=== PATIENT | female | born 1955 | race Caucasian/White ===

== ENCOUNTER 2023-05-07 05:03 | Observation (INO) ==
--- NOTE | 2023-04-02 09:22 | PAT Medication Instructions ---
Medication Instructions Date of Service April 02, 2023 Home Medications Medication Instructions Recorded ondansetron HCl 4 mg tablet 4 mg PO DAILY PRN nausea and 08/17/22 vomiting 4 days #30 tabs tramadol 50 mg tablet 50 mg PO Q8H PRN pain #30 tabs 01/28/23 verapamil 120 mg tablet,extended 120 mg PO QPM #30 tabs 02/12/23 release fluoxetine 20 mg capsule 20 mg PO QAM meloxicam 15 mg tablet 15 mg PO QAM ondansetron HCl 4 mg tablet 4 mg PO DAILY PRN tramadol 50 mg tablet 50 mg PO Q8H PRN fluoxetine 10 mg tablet 10 mg PO QAM verapamil 120 mg tablet,extended release 120 mg PO QPM Medical Marijuana 1 dose inhalation UD PRN cholecalciferol (vitamin D3) 1,250 mcg (50,000 unit) tablet 50,000 unit PO Q7D lamotrigine 25 mg tablet (Lamictal) 50 mg PO HS rizatriptan 10 mg tablet (Maxalt) 10 mg PO UD PRN sumatriptan succinate 100 mg tablet (Imitrex) 100 mg PO UD PRN ubrogepant 100 mg tablet (Ubrelvy) 100 mg PO UD PRN Continue as directed ondansetron HCl 4 mg tablet 4 mg PO DAILY PRN(if needed) rizatriptan 10 mg tablet (Maxalt) 10 mg PO UD PRN(if needed) sumatriptan succinate 100 mg tablet (Imitrex) 100 mg PO UD PRN(if needed) ubrogepant 100 mg tablet (Ubrelvy) 100 mg PO UD PRN(if needed) ASK your surgeon for instructions meloxicam 15 mg tablet 15 mg PO QAM DO NOT take the morning of surgery Medical Marijuana 1 dose inhalation UD PRN cholecalciferol (vitamin D3) 1,250 mcg (50,000 unit) tablet 50,000 unit PO Q7D Take morning of surgery With a small sip of water, OTHERWISE NOTHING TO EAT OR DRINK AFTER MIDNIGHT: fluoxetine 20 mg capsule 20 mg PO QAM tramadol 50 mg tablet 50 mg PO Q8H PRN(if needed) fluoxetine 10 mg tablet 10 mg PO QAM Take evening before surgery tramadol 50 mg tablet 50 mg PO Q8H PRN(if needed) verapamil 120 mg tablet,extended release 120 mg PO QPM lamotrigine 25 mg tablet (Lamictal) 50 mg PO HS Other Notes If you have any questions please call us at [phone] or [phone] or [phone] or [phone]
--- NOTE | 2023-04-06 14:07 | Anesthesiology Consultation ---
Date of Service April 06, 2023 Assessment & Plan (1) Encounter for pre-operative examination: - Patient requests CXR be faxed to her PCP Dr. Dara Carnes with [facility]. - Outpatient joint assessment: Patient is currently scheduled for inpatient pathway. If re-evaluated and patient/surgeon requests outpatient pathway, patient is acceptable candidate for outpatient joint program from anesthesia standpoint pending surgeon's office assessment of pt motivation/support/completion of same day joint program preop requirements. Chart Review Chart Review: Acceptable Risk for Surgery and Patient seen in Pre Admission Testing Teaching & Discussion Pre-Anesthesia Teaching/Discussion Notes: Instructed NPO after midnight before surgery, except medications with 15 cc of water. Medication instructions provided according to the PAT guidelines. History Surgery Operation Date: 05/07/23 07:00 Proposed Procedures p Right Anterior Total Hip Arthroplasty - Bebeto Castorena DO Height/Weight Height: 5 ft 8 in Weight: 99.2 kg Allergies Allergy/AdvReac Type Severity Reaction Status Date / Time Sulfa (Sulfonamide AdvReac Intermediate GI upset Verified 04/06/23 14:13 Antibiotics) Medications Home Medications Medication Instructions Recorded Confirmed Last Taken fluoxetine 20 mg capsule 20 mg PO QAM 08/25/19 04/02/23 09/18/21 08:00 meloxicam 15 mg tablet 15 mg PO QAM 08/08/21 04/02/23 09/11/21 ondansetron HCl 4 mg tablet 4 mg PO DAILY PRN nausea and 08/17/22 04/02/23 Unknown vomiting 4 days #30 tabs tramadol 50 mg tablet 50 mg PO Q8H PRN pain #30 tabs 01/28/23 04/02/23 Unknown fluoxetine 10 mg tablet 10 mg PO QAM 02/12/23 04/02/23 Unknown verapamil 120 mg tablet,extended 120 mg PO QPM #30 tabs 02/12/23 04/02/23 Unknown release Medical Marijuana 1 dose inhalation UD PRN 04/02/23 04/02/23 Unknown Pain/anxiety cholecalciferol (vitamin D3) 1,250 50,000 unit PO Q7D 04/02/23 04/02/23 Unknown mcg (50,000 unit) tablet lamotrigine 25 mg tablet (Lamictal) 50 mg PO HS 04/02/23 04/02/23 Unknown rizatriptan 10 mg tablet (Maxalt) 10 mg PO UD PRN migraines 04/02/23 04/02/23 Unknown sumatriptan succinate 100 mg 100 mg PO UD PRN migraines 04/02/23 04/02/23 Unknown tablet (Imitrex) ubrogepant 100 mg tablet (Ubrelvy) 100 mg PO UD PRN migraine 04/02/23 04/02/23 Unknown Past Medical History Medical History (Updated 04/06/23 @ 14:15 by Annia Merchant PA-C) Depression Hx of migraine headaches Hypertension controlled, stable per pt Medical cannabis use Ocular migraine chronic Patient denies h/o stroke, seizures, heart attack, heart failure, DM, HTN, blood clots/DVTs or blood transfusions. Exercise / Class Metabolic Activity II 4-5 Yardwork/Stairs/Walk up hill (denies chest discomfort or shortness of breath with 1 FOS) Past Family History Family History (Updated 04/06/23 @ 14:13 by Annia Merchant PA-C) Mother Diabetes Father Diabetes Denies family history of Ovarian cancer Breast cancer Colorectal cancer Uterine cancer Past Surgical History Surgical History History of esophagogastroduodenoscopy (EGD) History of total left hip replacement History of total replacement of left shoulder joint Hx of colonoscopy Hx of tonsillectomy Hx of tubal ligation Past Anesthesia History No Hx of Anesthesia Complications and No Family Hx of Anesthesia Complications History of PONV No Hx of PONV and No Hx of Motion Sickness Social History Smoking Status: Former smoker Do You Dip or Chew Tobacco: No Smoking End Date: 1999 Hx Alcohol Use: Yes Alcohol type: hard liquor alcohol intake frequency: a few times a month Hx Substance Use: No (medical card) substance use type: marijuana Last Used Substance Other:: occasional use>most recent 04/01/23 Review of Systems Patient denies chest pain, shortness of breath, dyspnea on exertion, snoring, witnessed apneas, reflux, fever, chills, cough, wheezing, or palpitations. Physical Exam Vital Signs Vitals BP 147/84 P 71 TEMP 98.3 SP02 95% on RA RESP 18 Physical Patient resting comfortably in chair in no acute distress, alert and oriented, responding appropriately throughout visit Full cervical extension range of motion without pain TMD 3.5 finger breadths Mallampati Score 3 Dentition: several caps/crowns and implant right lower side, denies chipped or loose teeth, or bridges Lungs: normal respiratory effort. Good air movement, clear throughout to auscultation, no adventitious breath sounds Cardiac: regular rate and rhythm, no murmurs noted Carotid arteries: negative bruit bilat Lab Results Anesthesia Preop Results Results Anesthesia Widget: WBC 6.54 K/ul (4.8-10.8) 04/06/23 Hgb 13.7 g/dl (12.0-16.0) 04/06/23 Hct 41.6 % (37.0-47.0) 04/06/23 Plt 251 K/uL (130-400) 04/06/23 Na 139 mmol/L (136-145) 04/06/23 K 4.2 mmol/L (3.5-5.1) 04/06/23 Cl 106 mmol/L (98-107) 04/06/23 CO2 28 mmol/L (21-32) 04/06/23 BUN 17 mg/dl (6-23) 04/06/23 Creat 0.94 mg/dl (0.6-1.2) 04/06/23 Glucose Level 81 mg/dl (70-99(Fasting)) 04/06/23 PT 10.6 Seconds (9.0-12.0) 04/06/23 PTT 28 Seconds (21-31) 04/06/23 INR 1.0 (0.9-1.1) 04/06/23 TSH 2.474 uIu/ml (0.300-4.500) 04/06/23 Blood Type O Positive 04/06/23 Antibody Screen NEGATIVE 04/06/23 Testing Electrocardiogram Date: 04/06/23 NSR, rate 64 bpm Moderate voltage criteria for LVH, may be normal variant Nonspecific ST abnormality Chest X-Ray Date: 04/06/23 No active disease in the chest.
--- NOTE | 2023-05-06 12:29 | History & Physical Report ---
Date of Service May 06, 2023 Assessment & Plan (1) Osteoarthritis of right hip: We will proceed with a right total hip arthroplasty. Postoperatively she will be started on aspirin for DVT prophylaxis and kept overnight in the hospital for postop medical management. She plans to use energy physical therapy upon discharge. History of Present Illness Chief Complaint: Osteoarthritis of the right hip. Primary Care Provider: Dara Carnes MD Gisell is a pleasant 67-year-old female who has been dealing with chronic increasing right hip pain. She has a history of a left hip replacement done by Dr. Britt in the past and has done well with that. Unfortunately, she is dealing with a lot of right hip pain. She has trouble walking long distances. She has trouble getting in and out of a car. She has a lot of pain in her right hip. After failing extensive conservative treatment, she has elected proceed with a right total hip arthroplasty. Allergies Allergy/AdvReac Type Severity Reaction Status Date / Time Sulfa (Sulfonamide AdvReac Intermediate GI upset Verified 04/06/23 14:13 Antibiotics) Home Medications Medication Instructions Recorded Confirmed Type fluoxetine 20 mg capsule 20 mg PO QAM 08/25/19 04/02/23 History meloxicam 15 mg tablet 15 mg PO QAM 08/08/21 04/02/23 History ondansetron HCl 4 mg tablet 4 mg PO DAILY PRN nausea and 08/17/22 04/02/23 Rx vomiting 4 days #30 tabs fluoxetine 10 mg tablet 10 mg PO QAM 02/12/23 04/02/23 History verapamil 120 mg tablet,extended 120 mg PO QPM #30 tabs 02/12/23 04/02/23 Rx release Medical Marijuana 1 dose inhalation UD PRN 04/02/23 04/02/23 History Pain/anxiety cholecalciferol (vitamin D3) 1,250 50,000 unit PO Q7D 04/02/23 04/02/23 History mcg (50,000 unit) tablet rizatriptan 10 mg tablet (Maxalt) 10 mg PO UD PRN migraines 04/02/23 04/02/23 History sumatriptan succinate 100 mg 100 mg PO UD PRN migraines 04/02/23 04/02/23 History tablet (Imitrex) ubrogepant 100 mg tablet (Ubrelvy) 100 mg PO UD PRN migraine 04/02/23 04/02/23 History lamotrigine 25 mg tablet (Lamictal) 50 mg (2 x 25 mg) PO HS 30 days 04/08/23 Rx #60 tabs tramadol 50 mg tablet 50 mg PO Q8H PRN pain #30 tabs 05/03/23 Rx Past Med/Surg History Medical History Ocular migraine chronic Medical cannabis use Depression Hypertension controlled, stable per pt Hx of migraine headaches Surgical History History of esophagogastroduodenoscopy (EGD) History of total replacement of left shoulder joint History of total left hip replacement Hx of tubal ligation Hx of colonoscopy Hx of tonsillectomy Family History Mother Diabetes Father Diabetes Denies family history of Ovarian cancer Breast cancer Colorectal cancer Uterine cancer Social History Smoking Status: Former smoker Tobacco Type: Cigarettes Second Hand Exposure: Yes (hx); Do You Dip or Chew Tobacco: No; Hx Alcohol Use: Yes Alcohol type: hard liquor Hx Substance Use: No (medical card) Preferred Language: Cypriot Communication Ability: Effective Healthcare Applications Analyst Required: No Beliefs That Will Affect Care: None Current Living Situation: Spouse Feels Safe at Home: Yes Assistive Devices: Glasses Review of Systems All systems reviewed & are unremarkable except as noted in HPI & below. Physical Exam On physical examination of right hip, she has decreased range of motion. She has pain with forced internal/external rotation. All of her pain is located in the groin.. Constitutional WD/WN, vitals as above Eyes PERRL, conjunctivae normal, anicteric sclerae ENMT external ear and nose normal, oropharynx normal Neck trachea midline, no thyromegaly Respiratory normal respiratory effort Cardiovascular RRR, no murmur, no edema Gastrointestinal (Abdomen) normal bowel sounds, soft, nontender, no hepatosplenomegaly Psychiatric A+Ox3, euthymic affect Results & Data Results & Data Laboratory Results . Diagnostic Findings X-rays of the right hip show advanced osteoarthritis with joint space narrowing, osteophyte formation, and nlid-fa-pfye articulation. PG Care Time/CCT Total # of Minutes Spent Total Time Spent with Patient: Total time spent is greater than 50% in coordination of care (as documented) at patient's floor/unit and/or counseling patient: Coding Level of Care Code None Diagnoses Osteoarthritis of right hip M16.11
[2023-05-07] MEDS: LR 60ML/HR IV SCH (05:55)
[2023-05-07] MEDS: LR 500ML BOLUS, THEN 15ML/HR IV SCH (05:55)
[2023-05-07] MEDS: GABAPENTIN 300 MG CAP PO SCH (05:57)
[2023-05-07] MEDS: FAMOTIDINE 20 MG TAB PO SCH (05:57)
[2023-05-07] MEDS: ACETAMINOPHEN 500 MG TAB PO SCH ×2 (05:57→13:03)
[2023-05-07] MEDS ORDERED: BUPIVACAINE 0.5 % 5 MG/1 ML PF 10ML VIAL ONE (06:24)
[2023-05-07] MEDS ORDERED: ePHEDrine sulfate 50 MG/ML AMP IV PRN (06:37)
[2023-05-07] MEDS ORDERED: ONDANSETRON INJ 2 MG/ML 2 ML VIAL IV PRN ×2 (06:37→10:05)
[2023-05-07] MEDS ORDERED: ATROPINE SULFATE 0.1 MG/ML 10ML SYR IV PRN (06:37)
[2023-05-07] MEDS ORDERED: MIDAZOLAM HCL 1 MG/ML 2ML VIAL ONE (06:40)
[2023-05-07] MEDS ORDERED: fentaNYL citrate PF 100 MCG/2 ML VIAL ONE (06:40)
[2023-05-07] MEDS ORDERED: PROPOFOL IV EMULSION 10 MG/ML 20 ML VIAL IV ONE (06:41)
--- NOTE | 2023-05-07 06:42 | History & Physical Bridge Note ---
Date of Service May 07, 2023 History & Physical Bridge Note I have examined the patient, reviewed the History & Physical and in the interval since the performance of the History & Physical I have noted the following changes of clinical significance: no changes noted
[2023-05-07] MEDS: TRANEXAMIC ACID 1,000 MG **IV Pre-op IV SCH (06:43)
[2023-05-07] MEDS: ceFAZolin 2000MG 2,000 MG/15 ML SYR IV SCH ×2 (06:58→14:36)
[2023-05-07] MEDS: ROPIV 0.5% 246mg, Ketorolac 30mg, EPINEPHrine 0.5mg in NSS INFIL SCH (07:24)
[2023-05-07] MEDS: ORTHO JOINT ANESTHETIC ONE (07:25)
[2023-05-07] MEDS: TRANEXAMIC ACID 1,000 MG **IV Intra-op IV SCH (07:53)
--- NOTE | 2023-05-07 07:54 | Operative Report ---
PG Post Operative Report Pre & Post Diagnosis Operation Date: 05/07/23 07:00 Pre-Op Diagnosis: Right Hip Degenerative Joint Disease Post-Op Diagnosis: Right Hip Degenerative Joint Disease I identified the patient and participated in the time-out.: Yes Procedure Operation Date: 05/07/23 07:00 Actual Procedures p Right Anterior Total Hip Arthroplasty(Right) - Bebeto Castorena DO Surgeon Bebeto Castorena DO Tv Technician Bebeto Chaudhary PA-C Estimated Blood Loss 200 Findings Consistent with Post-Op Diagnosis Specimens Right femoral head Description of Procedure Implants used I used a ZimmerBiomet total hip arthroplasty system with a size 5 standard offset Avenir Complete stem, a 50 mm G7 cup with a 25mm screw, an E1 polyet hylene liner, a 36 mm ceramic head with a 0 neck. Gisell arrived at the hospital for the above procedure. She was seen in the preoperative holding area and the operative extremity was identified and signed. She was given a spinal anesthetic, a preoperative antibiotic, and TXA. She was then taken back to the operating room and laid on the table in the supine position. She was given basic sedation. The operative leg was secured to a Puristst leg positioner. The hip was then prepped and draped in sterile fashion. A timeout was done and the patient and the operative extremity was properly identified. An anterior approach was used. Dissection was taken down through the fascia and the tensor muscle belly was retracted laterally and the rectus was retracted medially. The circumflex vessels were identified and ligated. The capsule was then incised and tagged for later repair. The femoral neck was then cut and the femoral head was removed. The acetabulum was exposed. Time was spent doing a complete circumferential labral release. Sequential reaming of the acetabulum up to a size 49 reamer was done. Final reamings were done under fluoroscopy to ensure appropriate version. A Biomet 50 mm G7 cup was then impacted into place. A single 25 mm screw was placed. The E1 polyethylene liner was then snapped into place. Surrounding soft tissues were then injected with 100 cc of an orthopedic pain control cocktail. The proximal femur was then exposed. Sequential broaching up to a size 5 broach was done. Off that broach a size 36 head with a 0 neck was trialed. The hip was reduced and fluoroscopic images showed anatomic alignment of the implants in acceptable length. The broach was removed. The final size 5 standard offset Avenir Complete stem was then impacted into place. A ceramic 36 mm head with a 0 neck was then impacted onto the stem and the hip was reduced. Final fluoroscopic images showed anatomic alignment of the hip. The capsule was then closed with #1 Vicryl suture. A dilute betadyne lavage was then done for 3 minutes. The joint was then irrigated with normal saline solution. The fascia was closed with #1 PDS suture. Skin was closed with 2-0 Vicryl, koki, and a Silverlon dressing. She was then transferred to a hospital bed and taken to the post anesthesia care unit in stable condition. She tolerated the procedure well. Bebeto Chaudhary PA-C, was present for the entire procedure. He was critical for patient positioning, prepping, draping, retraction exposure, wound closure and application of sterile dressing. I attest to the content of the Intraoperative Record and any orders documented therein. Any exceptions are noted below.
--- NOTE | 2023-05-07 08:47 | XRay Report ---
SINGLE VIEW PELVIS; SINGLE VIEW RIGHT HIP CLINICAL HISTORY: Postoperative examination. FINDINGS: An AP portable view of the hips and pelvis with a crosstable lateral portable view of the r ight hip are compared to study dated 01/28/2023. A bipolar right hip arthroplasty is in near-anatomic alignment. A single cortical lag screw transfixes the acetabular cup. No acute fracture is identifie d. There are expected postoperative changes overlying the right hip including skin clips, subcutaneou s gas, and soft tissue swelling. A left hip arthroplasty is unchanged in position. Mild sclerotic yahir nge is noted in the sacroiliac joints. IMPRESSION: Expected postoperative findings status post right hip arthroplasty. No acute fracture is seen. ACT 112: Negative or not required by law. Electronically signed by: Jarred Darby M.D. 05/07/2023 8:46 AM
[2023-05-07] MEDS: fentaNYL citrate PF 100 MCG/2 ML VIAL IV PRN (09:03)
[2023-05-07] MEDS ORDERED: ePHEDrine sulfate 50 MG/5 ML SYR ONE (09:08)
--- NOTE | 2023-05-07 09:34 | Fluoroscopy Report ---
INTRAOPERATIVE RADIOGRAPH CLINICAL HISTORY: Right hip arthroplasty. Fluoro time: 13 seconds Ka,r: 1.93 mGy FINDINGS: A single spot fluoroscopic view of the right hip from an arthroplasty procedure is presente d. A bipolar right hip arthroplasty is in near anatomic alignment. A single cortical lag screw transf ixes the acetabular cup. There is no evidence of acute fracture on this fluoroscopic image. IMPRESSION: Intraoperative image from right hip arthroplasty procedure as above. Electronically signed by: Jarred Darby M.D. 05/07/2023 9:33 AM
[2023-05-07] MEDS ORDERED: NALOXONE HCL 0.4 MG/1 ML VIAL/CARP IV PRN (10:05)
[2023-05-07] MEDS ORDERED: HYDROmorphone INJ 0.5 MG/0.5 ML SYR IV PRN (10:05)
[2023-05-07] MEDS ORDERED: METOCLOPRAMIDE HCL INJ 5 MG/ML 2 ML VIAL IV PRN (10:05)
[2023-05-07] MEDS ORDERED: NON-FORMULARY MEDICATION (Ubrogepant [Ubrelvy] 100 mg tablet) PO PRN (10:05)
[2023-05-07] MEDS ORDERED: bisacodyL 10 MG SUPP PR PRN (10:05)
[2023-05-07] MEDS ORDERED: MAGNESIUM HYDROXIDE SUSP 30 ML UDC PO PRN (10:05)
--- NOTE | 2023-05-07 10:13 | Anesthesiology Progress Note ---
Date of Service May 07, 2023 Anesthesia Post Procedure Vital Signs Vital Signs: Temp Pulse Pulse Resp BP Pulse Ox O2 Del Method 05/07/23 10:08 97.5 F L 57 L 16 125/79 96 Room Air 05/07/23 09:45 66 17 118/71 94 Room Air 05/07/23 09:30 56 L 13 119/67 96 Room Air 05/07/23 09:20 97.5 F L 59 L 13 117/69 96 Room Air 05/07/23 09:10 56 L 19 121/67 98 Room Air 05/07/23 09:00 60 14 117/76 95 Room Air 05/07/23 08:50 58 L 15 120/74 96 Room Air 05/07/23 08:40 55 L 16 111/68 99 Room Air 05/07/23 08:30 64 20 109/64 99 Oxymask 05/07/23 08:23 96.8 F L 59 L 12 102/59 L 99 Oxymask 05/07/23 05:43 98.4 F 77 18 151/94 H 95 Room Air O2 Flow Rate 05/07/23 10:08 05/07/23 09:45 05/07/23 09:30 05/07/23 09:20 05/07/23 09:10 05/07/23 09:00 05/07/23 08:50 05/07/23 08:40 05/07/23 08:30 2 05/07/23 08:23 4 05/07/23 05:43 Pain Intensity Right Head: Pain Intensity: 1 Transfer of Care Handoff Completed per policy Notes Mental Status: alert / awake / arousable and participated in evaluation Patient Amnestic to Procedure: Yes Nausea / Vomiting: adequately controlled Pain: adequately controlled Airway Patency, RR, SpO2: stable & adequate BP & HR: stable & adequate Hydration State: stable & adequate Neuraxial Anesthesia: was administered and sensory block is resolving Anesthetic Complications: no major complications apparent and Pt Satisfied with anesthetic care
[2023-05-07] MEDS: SODIUM CHLORIDE 0.9% 1,000 ML IV SCH (10:38)
[2023-05-07] MEDS: MULTIVITAMIN TAB PO SCH (11:15)
[2023-05-07] MEDS: ASPIRIN 81 MG ECTAB PO SCH (11:15)
[2023-05-07] MEDS: DOCUSATE SODIUM 100 MG CAP PO SCH (11:15)
[2023-05-07] MEDS: RIZATRIPTAN BENZOATE 10 MG TAB PO PRN (11:18)
[2023-05-07] MEDS: KETOROLAC TROMETHAMINE 15 MG/ML VIAL IV SCH (12:08)
[2023-05-07] MEDS: FLUoxetine HCL 20 MG CAP PO SCH (12:15)
[2023-05-07] MEDS: FLUoxetine HCL 10 MG CAP PO SCH (12:15)
[2023-05-07] MEDS: oxyCODONE HCL IR 5 MG TAB (IMMEDIATE RELEASE) PO PRN (14:39)
[2023-05-07] MEDS: PNEUMOCOCCAL VACCINE (PCV20) 20-VAL CONJ-DIP CRM/PF 0.5 ML SYR IM ONE (16:05)
[2023-05-07] MEDS: VERAPAMIL HCL 120 MG TABCR PO SCH (19:57)
[2023-05-07] MEDS: SENNA 8.6 MG TAB PO SCH (19:58)
[2023-05-07] MEDS: lamoTRIgine 25 MG TAB PO SCH (19:58)
--- NOTE | 2023-05-08 07:33 | Orthopedic Progress Note ---
Date of Service May 08, 2023 Assessment & Plan (1) Status post right hip replacement: Overall she is doing very well. She is not having much pain in the right hip. She will be seen by physical therapy today for ambulation and range of motion exercises. She is on aspirin for DVT prophylaxis. She can be discharged home later today. She will follow-up orthopedics in 2 weeks. Marcel aJmeson was seen and examined at bedside this morning. Overall she is doing very well. She is not having much pain in the right hip. She has been up and ambulating. She has no complaints.. Review of Systems All systems reviewed & are unremarkable except as noted in HPI & below. Physical Exam On physical examination of the right hip, the dressing is clean and dry. Her leg lengths are equal. She has active dorsiflexion plantarflexion of her right ankle.. Results & Data Results & Data Laboratory Results . Diagnostic Findings Postoperative x-rays of the right hip show the prosthesis to be in anatomic ali gnment without any evidence of fracture, dislocation, or loosening.. PG Care Time/CCT Total # of Minutes Spent Total Time Spent with Patient: Total time spent is greater than 50% in coordination of care (as documented) at patient's floor/unit and/or counseling patient: Coding Level of Care Code 40510 Post Operative Follow-Up Diagnoses Status post right hip replacement Z96.641
--- NOTE | 2023-05-08 07:34 | Discharge Summary ---
Date of Service May 08, 2023 Admission HPI (Per Admitting) Gisell is a pleasant 67-year-old female who has been dealing with chronic increasing right hip pain. She has a history of a left hip replacement done by Dr. Britt in the past and has done well with that. Unfortunately, she is dealing with a lot of right hip pain. She has trouble walking long distances. She has trouble getting in and out of a car. She has a lot of pain in her right hip. After failing extensive conservative treatment, she has elected proceed with a right total hip arthroplasty. Admission Exam (Per Admitting) On physical examination of right hip, she has decreased range of motion. She has pain with forced internal/external rotation. All of her pain is located in the groin.. Principal Diagnosis Same as "Discharge Diagnosis" noted below under Discharge Instructions. Discharge Exam On physical examination of the right hip, the dressing is clean and dry. Her leg lengths are equal. She has active dorsiflexion plantarflexion of her right ankle.. Discharge Data Procedures Performed Operation Date: 05/07/23 07:00 Actual Procedures p Right Anterior Total Hip Arthroplasty(Right) - Bebeto Castorena DO Ordered Studies 05/07/23 07:00 FL hip RT 1V Routine Hospital Course (1) Status post right hip replacement: On May 07 [address] [facility] and underwent a right hip replacement without complication. She had a spinal anesthetic. Postoperatively she was started on aspirin for DVT prophylaxis and transferred to the general orthopedic floors. Her hospital course was uneventful. On postop day #1, her vital signs were stable and her pain was well-controlled. She was able to participate well with physical therapy doing ambulation and range of motion exercises. She was then discharged home. She will follow-up with orthopedics in 2 weeks. PG Care Time/CCT Total # of Minutes Spent Total Time Spent with Patient: Total time spent is greater than 50% in coordination of care (as documented) at patient's floor/unit and/or counseling patient: Discharge Plan Discharge Items Patient Disposition: Home - Self-Care Reason For Visit: Right Hip Degenerative Joint Disease Discharge Diagnosis: Right hip replacement Activity: As commented below Non-emergency contact: Surgeon Call non-emergency contact if: your wound has increased redness and your wound has increased drainage Follow-up/Referrals: Dara Carnes MD [Primary Care Provider] - Diet: Regular Addtl Attending Provider Instructions: Activity and Therapy Recommendations: * If you are using [facility] then therapy will be provided at your home until they feel you have accomplished all of your goals. * If you are using [facility] then Physical Therapy will be provided until they feel you are ready to start Outpatient Physical Therapy. * If you are not using home therapy then Outpatient Physical Therapy should start about 3-5 days from your day of surgery. Therapy will last about 6-10 weeks * You were shown a series of exercises in the hospital. Do these exercises three times each day including the exercises you were shown in physical therapy. * Get up and walk several times each day.~ For the first four weeks, try not to stand or walk for more than one hour at a time. If you do stand or walk for more than one hour, you will not hurt anything, but your leg will likely swell.~~ * As you feel comfortable, you may change from the walker or crutches to a cane and~then to independent walking. Medications: * Narcotic You will likely be sent home from the hospital with a prescription for the narcotic pain medication that worked best throughout your stay. * Cefadroxil -take the antibiotic twice a day for 10 days to help prevent infection. * Aspirin Most patients will be required to take Aspirin 81mg twice a day for 6 weeks after surgery. This is obtained [id number] and a prescription is not necessary. * Other medications may be prescribed for specific circumstances. If you have any questions, please call the office at . * Resume previous home medications unless otherwise instructed TEDs/Elastic Stockings: The white elastic stockings help limit swelling and prevent blood clots from forming in your legs. The more you wear them, the more they work. Wear them for six weeks. Dressing Care: Leave the Silverlon dressing in place for 7 days. After 7 days you may remove the dressing. If the incision is not draining then you may leave the koki open to air. If there is a little bit of drainage or if the koki are getting stuck on your clothing then cover the incision with a dry dressing. The koki will be removed at your 2 week follow-up appointment. Showering: You may shower with the Silverlon dressing in place. Do not let the shower spray hit the dressing directly. Pat the Silverlon dressing dry. If the dressing becomes wet underneath, then simply remove the dressing. Keep the incision dry until you are 7 days out from the day of surgery. After 7 days you may remove the Silverlon dressing and shower with the koki exposed. Let soapy water run over the koki and pat them dry. Do not scrub or soak the incision. Things To Watch For: * Drainage from the incision site that occurs more than one week after your surgery. * Increased redness at the incision site. * Fever above 102 degrees Fahrenheit. * Unusual chest pain or shortness of breath. * Call [facility] at with any of the above problems Follow-Up Visit: Follow-up with Dr. Castorena's PA (Bebeto Chaudhary) 2-3 weeks after your day of surgery. He will remove your koki and answer any questions. If you have any additional questions or concerns, Dr Castorena is usually in the office at the same time and will be available An appointment was probably scheduled when you signed-up for surgery in the office. If you have any questions call Office Instructions: More detailed instructions as well as Frequently Asked Questions were provided in a folder by our office when you signed-up for surgery. Please review these instructions when you get home. If you have any further questions or concerns, please feel free to call the office at [phone] Pending Studies at Discharge: No Stand-Alone Forms: My [facility], Smoking Cessation Medications and DC Order Prescriptions: New oxycodone 5 mg Tablet 5 mg PO Q4H PRN (Reason: pain) Qty: 30 0RF cefadroxil 500 mg capsule 500 mg PO BID 10 Days Qty: 20 0RF aspirin 81 mg Tablet,Delayed Release (Dr/Ec) 81 mg PO BID 42 Days Qty: 0 0RF Continued lamotrigine [Lamictal] 25 mg tablet 50 mg PO HS 30 Days Qty: 60 5RF tramadol 50 mg tablet 50 mg PO Q8H PRN (Reason: pain) Qty: 30 0RF fluoxetine 10 mg tablet 10 mg PO QAM fluoxetine [Prozac] 20 mg capsule 20 mg PO QAM meloxicam 15 mg Tablet 15 mg PO QAM rizatriptan [Maxalt] 10 mg Tablet 10 mg PO UD PRN (Reason: migraines) Rx Instructions: take 1 tab at onset of headache; if no relief may repeat 1 tab after at least 2 hrs; max = 3 tabs/24 hr sumatriptan succinate [Imitrex] 100 mg tablet 100 mg PO UD PRN (Reason: migraines) Rx Instructions: take 1 tab at onset of headache; if no relief, may repeat 1 tab after at least 2 hrs; max = 2 tabs/24 hrs PO cholecalciferol (vitamin D3) 1,250 mcg (50,000 unit) tablet 50,000 unit PO Q7D Patient Comments: takes on weekend Ubrelvy 100 mg tablet 100 mg PO UD PRN (Reason: migraine) Medical Marijuana 1 dose inhalation UD PRN (Reason: Pain/anxiety) verapamil [Calan SR] 120 mg tablet extended release 120 mg PO QPM Discharge Orders: Discharge Order (Routine); Ordered 05/08/23 Ordered By: Bebeto Castorena Admission Data Admit Date/Time: 05/07/23 08:20 Attending Provider: Bebeto Castorena Admit Provider: Bebeto Castorena Primary Care Provider: Dara Carnes
[2023-05-08] MEDS: SUMAtriptan succinate 100 MG TAB PO PRN (07:56)
== END 2023-05-08 10:27 | disposition home or self-care (01) ==
LOC: ASU 05:03 → 3E 05:03

== ENCOUNTER 2024-09-18 09:27 | Inpatient (IN) ==
--- NOTE | 2024-08-24 15:52 | PAT Medication Instructions ---
Medication Instructions Date of Service August 24, 2024 Home Medications Medication Instructions Recorded ubrogepant 100 mg tablet (Ubrelvy) 100 mg PO UD PRN migraine #10 tabs 03/09/24 verapamil 180 mg tablet,extended 180 mg PO QPM #90 tabs 03/09/24 release lamotrigine 25 mg tablet (Lamictal) 50 mg (2 x 25 mg) PO HS 90 days 05/19/24 #180 tabs rizatriptan 10 mg tablet (Maxalt) 10 mg PO UD PRN migraines #9 tabs 07/18/24 Medical Marijuana 1 dose inhalation UD PRN Pain/anxiety fluoxetine 10 mg capsule 10 mg PO QAM ubrogepant 100 mg tablet (Ubrelvy) 100 mg PO UD PRN migraine verapamil 180 mg tablet,extended release 180 mg PO QPM lamotrigine 25 mg tablet (Lamictal) 50 mg (2 x 25 mg) PO HS rizatriptan 10 mg tablet (Maxalt) 10 mg PO UD PRN migraines meloxicam 15 mg tablet 15 mg PO QAM ASK your surgeon for instructions meloxicam 15 mg tablet 15 mg PO QAM ASK your prescriber and surgeon ubrogepant 100 mg tablet (Ubrelvy) 100 mg PO UD PRN migraine DO NOT take the morning of surgery Medical Marijuana 1 dose inhalation UD PRN Pain/anxiety Take morning of surgery With a small sip of water, OTHERWISE NOTHING TO EAT OR DRINK AFTER MIDNIGHT: fluoxetine 10 mg capsule 10 mg PO QAM rizatriptan 10 mg tablet (Maxalt) 10 mg PO UD PRN migraines (if needed) Take evening before surgery Medical Marijuana 1 dose inhalation UD PRN Pain/anxiety (if needed) verapamil 180 mg tablet,extended release 180 mg PO QPM lamotrigine 25 mg tablet (Lamictal) 50 mg (2 x 25 mg) PO HS rizatriptan 10 mg tablet (Maxalt) 10 mg PO UD PRN migraines (if needed) Other Notes If you have any questions please call us at [phone] or [phone] or [phone] or [phone]
--- NOTE | 2024-08-29 10:39 | Anesthesiology Consultation ---
Date of Service August 29, 2024 Assessment & Plan (1) Encounter for pre-operative examination: - Outpatient joint assessment: Patient is currently scheduled for inpatient pathway. If re-evaluated and patient/surgeon requests outpatient pathway, patient is not a candidate for outpatient joint program unless confirmed by surgeon given revision. Chart Review Chart Review: Acceptable Risk for Surgery and Patient seen in Pre Admission Testing Teaching & Discussion Pre-Anesthesia Teaching/Discussion Notes: Instructed NPO after midnight before surgery, except medications with 15 cc of water. Medication instructions provided according to the PAT guidelines. History Surgery Operation Date: 09/18/24 09:00 Proposed Procedures p Revision Right Total Shoulder Arthroplasty - Bebeto aCstorena, Height/Weight Height: 5 ft 8 in Weight: 94.7 kg Allergies Allergy/AdvReac Type Severity Reaction Status Date / Time Sulfa (Sulfonamide AdvReac Intermediate GI upset Verified 08/30/24 07:41 Antibiotics) Medications Home Medications Medication Instructions Recorded Confirmed Last Taken Medical Marijuana 1 dose inhalation UD PRN 04/02/23 08/30/24 08/29/24 20:00 Pain/anxiety fluoxetine 10 mg capsule 10 mg PO QAM 03/09/24 08/30/24 08/29/24 08:00 ubrogepant 100 mg tablet (Ubrelvy) 100 mg PO UD PRN migraine #10 tabs 03/09/24 08/30/24 Unknown verapamil 180 mg tablet,extended 180 mg PO QPM #90 tabs 03/09/24 08/30/24 08/29/24 19:00 release lamotrigine 25 mg tablet (Lamictal) 50 mg (2 x 25 mg) PO HS 90 days 05/19/24 08/30/24 08/29/24 19:00 #180 tabs rizatriptan 10 mg tablet (Maxalt) 10 mg PO UD PRN migraines #9 tabs 07/18/24 08/30/24 08/23/24 06:00 meloxicam 15 mg tablet 15 mg PO QAM 08/15/24 08/30/24 08/29/24 08:00 Past Medical History Medical History Depression Glenohumeral arthritis Hx of migraine headaches Hypertension controlled, stable per pt Ocular migraine chronic Osteoarthritis Pain in shoulder region after shoulder replacement right - having surgery at [facility] 09/2024 Patient denies h/o stroke, seizures, heart attack, heart failure, DM, blood clots/DVTs or blood transfusions. Exercise / Class Metabolic Activity II 4-5 Yardwork/Stairs/Walk up hill (denies chest discomfort or shortness of breath with one flight of stairs) Past Family History Family History Mother Diabetes Father Diabetes Other No family history of adverse response to anesthesia Denies family history of Ovarian cancer Breast cancer Colorectal cancer Uterine cancer Past Surgical History Surgical History History of esophagogastroduodenoscopy (EGD) History of total left hip replacement History of total replacement of left shoulder joint History of total right hip arthroplasty Right anterior EHSAN (05/07/23): SAB at [facility] Hx of colonoscopy Hx of right cataract extraction (08/23/24) Hx of tonsillectomy Hx of tubal ligation S/p reverse total shoulder arthroplasty (2023) right Past Anesthesia History No Hx of Anesthesia Complications and No Family Hx of Anesthesia Complications History of PONV No Hx of PONV and No Hx of Motion Sickness Social History Smoking Status: Former smoker Do You Dip or Chew Tobacco: No Smoking End Date: quit 25 years ago Hx Alcohol Use: Yes Alcohol type: hard liquor alcohol intake frequency: a few times a month Alcohol Intake Frequency Comment: 2x per month Hx Substance Use: Yes substance use type: marijuana Last Used Substance: Unknown Last Used Substance Other:: med marijuana- 2x per week-advised Review of Systems Snoring, denies witnessed apneas. Patient denies chest pain, shortness of breath, dyspnea on exertion, reflux, fever, chills, cough, wheezing, or palpitations. Physical Exam Vital Signs Vitals BP 131/84 P 73 TEMP 98.5 SP02 95% on RA RESP 18 Physical Patient resting comfortably in chair in no acute distress, alert and oriented, responding appropriately throughout visit Full cervical extension range of motion without pain TMD 3.5 finger breadths Mallampati Score 3 Dentition: several caps/crowns, bridge left upper side and implant right lower side; denies chipped or loose teeth Lungs: normal respiratory effort. Good air movement, clear throughout to auscultation, no adventitious breath sounds Cardiac: regular rate and rhythm, no murmurs noted Carotid arteries: negative bruit bilat Lab Results Anesthesia Preop Results Results Anesthesia Widget: WBC 8.58 K/ul (4.8-10.8) 08/29/24 Hgb 13.7 g/dl (12.0-16.0) 08/29/24 Hct 39.9 % (37.0-47.0) 08/29/24 Plt 228 K/uL (130-400) 08/29/24 Na 138 mmol/L (136-145) 08/29/24 K 4.2 mmol/L (3.5-5.1) 08/29/24 Cl 105 mmol/L (98-107) 08/29/24 CO2 24 mmol/L (21-32) 08/29/24 BUN 28 mg/dl (6-23) H 08/29/24 Creat 0.99 mg/dl (0.6-1.2) 08/29/24 Glucose Level 93 mg/dl (70-99(Fasting)) 08/29/24 PT 10.4 Seconds (9.0-12.0) 08/29/24 PTT 27 Seconds (21-31) 08/29/24 INR 1.0 (0.9-1.1) 08/29/24 Blood Type O Positive 08/29/24 Antibody Screen NEGATIVE 08/29/24 Testing Electrocardiogram Date: 08/29/24 NSR, rate 69 bpm Minimal voltage criteria for LVH, may be normal variant Chest X-Ray Date: 08/29/24 No acute findings.
[~2024-09-18 09:27] MED LIST: BUPIVACAINE 0.5 % 5 MG/1 ML PF 10ML VIAL ONE; DEXAMETHASONE SOD INJ 4 MG/ML VIAL ONE; GLYCOPYRROLATE 0.2 MG/ML VIAL ONE; KETAMINE HCL 10MG/ML SYR ONE; LIDOCAINE 2% 2 ML VIAL/AMP(20MG/ML) INFIL ONE; MIDAZOLAM HCL 1 MG/ML 2ML VIAL ONE; ONDANSETRON INJ 2 MG/ML 2 ML VIAL ONE; PHENYLEPHRINE 100MCG/ML 5ML SYR ONE; PROPOFOL IV EMULSION 10 MG/ML 20 ML VIAL IV ONE; ePHEDrine sulfate 50 MG/5 ML SYR ONE
[2024-09-18] MEDS: LR 15ML/HR IV SCH (10:00)
[2024-09-18] MEDS: LR 60ML/HR IV SCH (10:00)
[2024-09-18] MEDS: dexAMETHasone**PF** 10 MG/ML VIAL IV SCH (10:00)
[2024-09-18] MEDS: ACETAMINOPHEN 500 MG TAB PO SCH ×2 (10:00→16:36)
[2024-09-18] MEDS: FAMOTIDINE 20 MG TAB PO SCH (10:00)
[2024-09-18] MEDS: GABAPENTIN 300 MG CAP PO SCH (10:00)
--- NOTE | 2024-09-18 10:04 | History & Physical Bridge Note ---
Date of Service September 18, 2024 History & Physical Bridge Note I have examined the patient, reviewed the History & Physical and in the interval since the performance of the History & Physical I have noted the following changes of clinical significance: no changes noted
[2024-09-18] MEDS ORDERED: ATROPINE SULFATE 0.1 MG/ML 10ML SYR IV PRN (10:35)
[2024-09-18] MEDS ORDERED: ONDANSETRON INJ 2 MG/ML 2 ML VIAL IV PRN ×2 (10:35→15:07)
[2024-09-18] MEDS: TRANEXAMIC ACID 1,000 MG **IV Pre-op IV SCH (11:00)
[2024-09-18] MEDS ORDERED: KETOROLAC 30 MG/ML VIAL ONE (11:46)
[2024-09-18] MEDS: ORTHO JOINT ANESTHETIC ONE (11:59)
[2024-09-18] MEDS: ROPIV 0.5% 246mg, Ketorolac 30mg, EPINEPHrine 0.5mg in NSS INFIL SCH (11:59)
--- NOTE | 2024-09-18 14:17 | XRay Report ---
XR shoulder RT min 2V routine CLINICAL HISTORY: Post shoulder surgery COMPARISON: 10/08/2023 FINDINGS: Right shoulder prosthesis shows no hardware complication. There are residual screws at the glenoid. There is expected soft tissue gas. IMPRESSION: Unremarkable postoperative exam. ACT 112: Negative or not required by law. Electronically signed by: Navarro Haeys M.D. 09/18/2024 2:16 PM
--- NOTE | 2024-09-18 14:35 | Operative Report ---
PG Post Operative Report Pre & Post Diagnosis Operation Date: 09/18/24 11:00 Pre-Op Diagnosis: Aseptic loosening right reverse shoulder arthroplasty Post-Op Diagnosis: Aseptic loosening right reverse shoulder arthroplasty I identified the patient and participated in the time-out.: Yes Procedure Operation Date: 09/18/24 11:00 Actual Procedures p Revision right reverse shoulder arthroplasty converted to hemiarthroplasty.(Right) - Bebeto Castorena DO Surgeon Bebeto Castorena DO [employer] Programmer Osmar Arnold PA-C Estimated Blood Loss 200 Findings Consistent with Post-Op Diagnosis Specimens None Description of Procedure On September 18, 2024 Gisell arrived at [facility] for the above procedure. She was seen in the preoperative holding area and the operative extremity identified and signed. She was given a preoperative antibiotic and a right interscalene nerve block. She was taken back the operative room and laid on table in supine position. She was put under general anesthesia. She was put into the beachchair position. The right shoulder was prepped and draped sterile fashion. A timeout was done. The patient and the operative extremity was properly identified. The previous deltopectoral incision was opened back up. Dissection was taken down through the fascia. The anterior shoulder was exposed. The subscapularis was still intact and carefully elevated off the lesser tuberosity. The shoulder was then dislocated. There was no signs of infection. The humeral tray was easily removed. The glenoid was then exposed. The glenoid baseplate was grossly loose. The glenosphere was disassociated from the glenoid baseplate and the glenosphere was removed. The screw heads were then removed from the glenoid baseplate. 2 with the screws were broken off and left in the glenoid vault. The glenoid baseplate was then removed. The glenoid vault was then carefully inspected. There was a full central defect of the glenoid vault. The retained screws were not visual and I did not feel it was worth removing bone to try to remove those screws. At first, an attempt was made to ream a large augment baseplate at the inferior aspect of the glenoid vault. I tried to place a large augmented baseplate and filled the remaining bony defects with Biomet GEN X bone graft. Unfortunately I did not feel this construct was stable enough and there was a crack that was progressing in the posterior wall. It was very stable, however, I did not feel I had enough bone stock to successfully implant an addit ional baseplate and the bone graft was not holding as well as I would have liked. At this point I decided to bone graft with DBX the defect and convert to a hemiarthroplasty. The Genex bone graft did not stay in the glenoid vault successfully. This was removed. The vault was then grafted with DBX mix of chips and putty. I was able to fill the entire glenoid vault. The proximal humerus was then exposed. A 50 x 27 mm humeral head was then trialed. I would like the stability. The final 50 x 27 mm head was then impacted into place. The shoulder was reduced. The subscapularis was then tenodesed back to the lesser tuberosity with #2 Arthrex fiber tapes. These were passed around the humeral neck. Overall, I was happy with my final range of motion. The surrounding soft tissues were injected with the orthopedic pain control cocktail. The deltopectoral interval was closed with 2-0 Vicryl. Skin was closed with 3-0 Vicryl and a Denis zip line. A Silverlon was placed. She was placed in an arm sling. She was then transferred to a hospital bed and taken to the postanesthesia care unit in stable condition. She tolerated the procedure well. Osmar Arnold PA-C, was present for the entire procedure. He was critical for patient positioning, prepping, draping, retraction exposure, wound closure and application of sterile dressing. I attest to the content of the Intraoperative Record and any orders documented therein. Any exceptions are noted below.
--- NOTE | 2024-09-18 14:51 | Anesthesiology Progress Note ---
Date of Service September 18, 2024 Anesthesia Post Procedure Vital Signs Vital Signs: Temp Pulse Resp BP Pulse Ox O2 Del Method O2 Flow Rate 09/18/24 14:45 67 12 112/62 94 Nasal Cannula 2 09/18/24 14:30 36.5 C 75 18 112/66 95 Nasal Cannula 2 09/18/24 14:20 75 18 116/80 93 Nasal Cannula 2 09/18/24 14:10 80 20 135/94 94 Room Air 09/18/24 14:00 73 18 119/76 94 Oxymask 3 09/18/24 13:50 36.1 C L 79 16 124/67 94 Oxymask 3 09/18/24 09:50 36.6 C 57 L 18 140/86 97 Room Air Transfer of Care Handoff Completed per policy Notes Mental Status: alert / awake / arousable Patient Amnestic to Procedure: Yes Nausea / Vomiting: adequately controlled Pain: adequately controlled Airway Patency, RR, SpO2: stable & adequate BP & HR: stable & adequate Hydration State: stable & adequate Anesthetic Complications: no major complications apparent and Pt Satisfied with anesthetic care
[2024-09-18] MEDS ORDERED: METOCLOPRAMIDE HCL INJ 5 MG/ML 2 ML VIAL IV PRN (15:07)
[2024-09-18] MEDS ORDERED: NALOXONE HCL 0.4 MG/1 ML VIAL/CARP IV PRN (15:07)
[2024-09-18] MEDS ORDERED: MAGNESIUM HYDROXIDE SUSP 30 ML UDC PO PRN (15:07)
[2024-09-18] MEDS ORDERED: HYDROmorphone INJ 0.5 MG/0.5 ML SYR IV PRN (15:07)
[2024-09-18] MEDS: SODIUM CHLORIDE 0.9% 1,000 ML IV SCH (15:30)
[2024-09-18] MEDS: BUPIVACAINE LIPOSOME 1.3% 133 MG/10 ML VIAL ONE (16:05)
[2024-09-18] MEDS: KETOROLAC TROMETHAMINE 15 MG/ML VIAL IV SCH (16:35)
[2024-09-18] MEDS: DOCUSATE SODIUM 100 MG CAP PO SCH (20:22)
[2024-09-18] MEDS: SENNA 8.6 MG TAB PO SCH (20:22)
[2024-09-18] MEDS: VERAPAMIL HCL 180 MG TABCR PO SCH (20:23)
[2024-09-18] MEDS: lamoTRIgine 25 MG TAB PO SCH (20:24)
[2024-09-19 05:03] VITALS: O2SAT 93
[2024-09-19 07:35] VITALS: PULSE 67; RESP 16; TEMP 98.2
--- NOTE | 2024-09-19 08:25 | Orthopedic Progress Note ---
Date of Service September 19, 2024 Assessment & Plan (1) Pain in shoulder region after shoulder replacement: * Continue Current Treatment * Disposition: home * Daily treatment: Physical Therapy/ Occupational Therapy per protocol * Weight bearing status: NWB x6 weeks * Continue to monitor for ABLA * Pain control * Office/hospital f/u 2 weeks for progress check and staple/suture removal * Plan for discharge today pending PT/OT clearance Subjective Active Problems: S/p R shoulder revision arthroplasty POD 1 68 y/o female s/p right shoulder revision arthroplasty. Doing well overall, pain managed and improved function. Denies fever/chills, chest pain/SOB, nausea/vomiting. Otherwise no complaints. Review of Systems All systems reviewed & are unremarkable except as noted in HPI & below. Physical Exam . General: Alert and oriented, no acute distress * Constitutional: well-developed, well-nourished. * Respiratory: Normal respiratory effort, no distress * Gastrointestinal: No tenderness to palpation, no rigidity or guarding. * Skin: No rash or lesion. * Neurologic: Grossly normal * Musculoskeletal: Right shoulder surgical dressing CDI, not removed for exam. Otherwise no obvious deformity or overlying skin changes. Diffuse TTP upper arm and shoulder region. Otherwise no specific tenderness of upper arm, elbow, forearm, wrist/hand. AROM shoulder not assessed. AROM elbow, wrist/hand intact. Sensation intact radial/median/ulnar nerve distributions. Brisk capillary refill. Results & Data Results & Data Laboratory Results . Diagnostic Findings . PG Care Time/CCT Total # of Minutes Spent Total Time Spent with Patient: Total time spent is greater than 50% in coordination of care (as documented) at patient's floor/unit and/or counseling patient: Coding Level of Care Code 87697 Post Operative Follow-Up Diagnoses Pain in shoulder region after shoulder replacement M25.519; Z96.619
[2024-09-19 08:31] VITALS: BP 118/73
[2024-09-19] MEDS: MULTIVITAMIN TAB PO SCH (08:48)
== END 2024-09-19 11:34 | disposition home or self-care (01) | DRG 483 ==
LOC: 3N 09:27 → ASU 09:27 → OBSVTOIN 13:54